=== PATIENT | male | born 1965 | race Caucasian/White ===

== ENCOUNTER 2016-07-13 08:46 | Emergency (ER) | payer BC, OTHER ==
--- NOTE | 2016-07-13 09:09 | EDM.PDOC ---
ED HPI GENERAL MEDICAL PROBLEM - General Chief Complaint: Cardiovascular Problem Stated Complaint: CHEST PAIN Time Seen by Provider: 07/13/16 08:50 Source of Information: Reports: Patient, EMS, EMS Notes Reviewed, Family History Limitations: Reports: No Limitations - History of Present Illness INITIAL COMMENTS - FREE TEXT/NARRATIVE: Dhruv comes in by EMS this am following an episode of midline lower retrosternal contant sharp chest pain with some epigastric features rated an 8/10. There was no radiation of pain, diaphoresis or jany SOB. There was no belching, heartburn , or gaseousness. EMS reported pain at 7/10, VSS, and transported uneventfully. Upon arrival to [facility] ED, pain was 2/10 without intervention, and currently painfree. He has a remote hx of Lalo fundoplication for GERD, and does take PPIs daily. Epigastric Pain Score (Numeric/FACES): 3 - Related Data Allergies Allergy/AdvReac Type Severity Reaction Status Date / Time No Known Allergies Allergy Verified 07/13/16 09:32 Home Meds: Home Meds Losartan [Cozaar] 100 mg PO DAILY 07/13/16 [History] Pantoprazole [ProTONIX] 40 mg PO DAILY 07/13/16 [History] amLODIPine [Norvasc] 10 mg PO DAILY 07/13/16 [History] Past Medical History Gastrointestinal History: Reports: GERD - Past Surgical History GI Surgical History: Reports: Lalo Fundoplication Social & Family History - Tobacco Use Smoking Status *Q: Never Smoker ED ROS GENERAL - Review of Systems Review Of Systems: See Below Constitutional: Reports: No Symptoms HEENT: Reports: No Symptoms Respiratory: Reports: No Symptoms Cardiovascular: Reports: Chest Pain Endocrine: Reports: No Symptoms GI/Abdominal: Reports: No Symptoms : Reports: No Symptoms Musculoskeletal: Reports: No Symptoms Skin: Reports: No Symptoms Neurological: Reports: No Symptoms Psychiatric: Reports: No Symptoms Hematologic/Lymphatic: Reports: No Symptoms Immunologic: Reports: No Symptoms ED EXAM, GENERAL - Physical Exam Exam: See Below Exam Limited By: No Limitations General Appearance: Alert, WD/WN, No Apparent Distress Eye Exam: Bilateral Eye: Normal Inspection, PERRL Ears: Normal External Exam Nose: Normal Inspection Throat/Mouth: Normal Inspection, Normal Oropharynx Head: Normocephalic Neck: Normal Inspection, Supple, Non-Tender, Full Range of Motion Respiratory/Chest: Lungs Clear, Normal Breath Sounds, Chest Non-Tender Cardiovascular: Normal Peripheral Pulses, Regular Rate, Rhythm, No Murmur GI/Abdominal: Normal Bowel Sounds, Soft, Non-Tender, No Organomegaly, No Distention, No Mass (Male) Exam: Normal Inspection Rectal (Males) Exam: Deferred Back Exam: Normal Inspection Extremities: Normal Inspection, Normal Range of Motion Neurological: Alert, Oriented, CN II-XII Intact, Normal Cognition, Normal Gait, No Motor/Sensory Deficits Psychiatric: Normal Affect, Normal Mood Skin Exam: Warm, Dry Lymphatic: No Adenopathy Course - Vital Signs Text/Narrative:: Damian remained asx at the [facility] ED, telemetry remained NSR, 12 lead ekg satisfactory, chest x ray satisfactory. Labs including CBC, Troponin I, and CMP were satisfactory. No meds were administered. Last Recorded V/S: Last Vital Signs Temp 36.6 C 07/13/16 09:00 Pulse 69 07/13/16 09:00 Resp 18 07/13/16 09:00 BP 158/84 H 07/13/16 09:00 Pulse Ox 93 L 07/13/16 09:00 - Orders/Labs/Meds Orders: Active Orders 24 hr Category Date Time Status EKG Documentation Completion [RC] ASDIRECTED Care 07/13/16 09:04 Active Chest 1V Frontal [CR] Stat Exams 07/13/16 09:03 Taken EKG 12 Lead [EK] Routine Ther 07/13/16 09:03 Ordered Labs: Laboratory Tests 07/13/16 07/13/16 07/13/16 Range/Units 09:10 09:10 09:10 WBC 6.3 (4.5-12.0) X10-3/uL RBC 5.32 (4.30-5.75) x10(6)uL Hgb 15.1 (11.5-15.5) g/dL Hct 43.4 (30.0-51.3) % MCV 81.6 (80-96) fL MCH 28.4 (27.7-33.6) pg MCHC 34.8 (32.2-35.4) g/dL RDW 12.0 (11.5-15.5) % Plt Count 217 (125-369) X10(3)uL MPV 7.4 (7.4-10.4) fL Neut % (Auto) 73.2 (46-82) % Lymph % (Auto) 21.1 (13-37) % [place] % (Auto) 5.2 (4-12) % Eos % (Auto) 0 L (1.0-5.0) % Baso % (Auto) 0 (0-2) % Neut # (Auto) 4.7 (1.6-8.3) # Lymph # (Auto) 1.3 (0.6-5.0) # [place] # (Auto) 0.3 (0.0-1.3) # Eos # (Auto) 0.0 (0.0-0.8) # Baso # (Auto) 0.0 (0.0-0.2) # Sodium 137 (135-145) mmol/L Potassium 4.2 (3.5-5.3) mmol/L Chloride 106 (100-110) mmol/L Carbon Dioxide 25 (23-29) mmol/L BUN 18 (5-20) mg/dL Creatinine 1.1 (0.6-1.3) mg/dL Est Cr Clr Drug Dosing 76.00 mL/min Estimated GFR (MDRD) > 60 (>60) BUN/Creatinine Ratio 16.4 (9-20) Glucose 118 H (80-116) mg/dL Calcium 9.1 (8.6-10.2) mg/dL Total Bilirubin 0.6 (0.1-1.3) mg/dL AST 17 (5-27) IU/L ALT 21 (14-26) IU/L Alkaline Phosphatase 48 L (56-112) IU/L Troponin I < 0.01 L (0.02-0.06) NG/ML Total Protein 7.6 (6.0-8.0) g/dL Albumin 4.2 (3.5-5.2) g/dL Globulin 3.4 g/dL Albumin/Globulin Ratio 1.2 Departure - Departure Time of Disposition: 10:15 Disposition: Home, Self-Care 01 Condition: good Clinical Impression: Atypical chest pain - Problem List & Annotations (1) Atypical chest pain SNOMED Code(s): 160995541 Code(s): R07.89 - OTHER CHEST PAIN Status: Acute Current Visit: Yes Annotation/Comment:: Atypical chest pain, possibly related to chronic GERD. He will continue maintenance meds, and may return to work without restrictions. - Problem List Review Problem List Initiated/Reviewed/Updated: Yes - My Orders Last 24 Hours: My Active Orders 07/13/16 09:03 Chest 1V Frontal [CR] Stat EKG 12 Lead [EK] Routine 07/13/16 09:04 EKG Documentation Completion [RC] ASDIRECTED - Assessment/Plan Last 24 Hours: My Active Orders 07/13/16 09:03 Chest 1V Frontal [CR] Stat EKG 12 Lead [EK] Routine 07/13/16 09:04 EKG Documentation Completion [RC] ASDIRECTED Plan: Follow up with PCP. No meds dispensed.
[2016-07-13] MEDS ORDERED: Alum Hydroxide/Mag Hydroxide 15 ML, Lidocaine 2% 15 ML PO ONE ×2 (10:22)
--- NOTE | 2016-07-13 10:31 | CR ---
INDICATION: Atypical chest pain. CHEST: An AP upright view of the chest was obtained 07/13/2016. No comparisons were available. There appears to be some minimal calcification in the area of the arch of the aorta, which is minimally tortuous. The heart is normal in size and shape. Overlying EKG leads are noted. An active infiltrate or effusion was not identified. Relatively poor inspiration is noted. IMPRESSION: 1. No acute process. 2. Suggestion of mild ASD aorta. MTDD
[2016-07-13] MEDS ORDERED: Nitroglycerin 0.4 MG Tab.SL SL ONE (10:44)
[2016-07-13] MEDS ORDERED: Acetaminophen/HYDROcodone 325-5 MG Tab PO ONE (11:06)
[2016-07-13 11:15] VITALS: BP 128/82
== END 2016-07-13 13:00 | disposition home or self-care (01) ==
LOC: FB.ED 08:46
DX: R07.89 Other chest pain (principal); K21.9 Gastro-esophageal reflux disease without esophagitis; Z79.899 Other long term (current) drug therapy
CPT/HCPCS: 36415; 71010; 80053; 84484; 85025; 93005; 99285; A9270

== ENCOUNTER 2017-06-25 07:14 | Day surgery (SDC) | payer BC ==
[2017-06-25] MEDS ORDERED: Lactated Ringers 1,000 ML IV SCH (07:30)
[2017-06-25] MEDS ORDERED: Sodium Chloride 0.9% 10 ML Syringe FLUSH PRN (07:30)
[2017-06-25] MEDS ORDERED: Lidocaine 2% 100 MG/5 ML Syringe IVPUSH ONE (10:00)
[2017-06-25] MEDS ORDERED: Propofol 200 MG/20 ML SDV IV ONE (10:00)
[2017-06-25] MEDS ORDERED: Midazolam 1 MG/ML 2 ML SDV IV ONE (10:00)
--- NOTE | 2017-06-25 10:25 | PCM.OPNOTE ---
- General Post-Op/Procedure Note Date of Surgery/Procedure: 06/25/17 Operative Procedure(s): egd with bx Findings: gastroduodenitis esophagitis breakdown of Lalo \ Pre Op Diagnosis: sx gerd hx of Lalo fundoplication Post-Op Diagnosis: gastroduodenitis. esophagitis. breakdown of Lalo \ Anesthesia Technique: MAC Primary Surgeon: Mynor Pickett Anesthesia Provider: Ary Oconnell Pathology: duodenum stomach distal esphagus Complications: None Condition: Good Free Text/Narrative:: see dictation #[id number]
[2017-06-25 11:16] VITALS: BP 116/85
--- NOTE | 2017-06-25 12:04 | OR ---
DATE OF OPERATION: 06/25/2017 SURGEON: Mynor Pickett MD PROCEDURES PERFORMED: Upper endoscopy with cold forceps biopsy. PREOPERATIVE DIAGNOSIS: Symptomatic gastroesophageal reflux disease, status post Lalo fundoplication. POSTOPERATIVE DIAGNOSES: Gastroduodenitis and esophagitis. INDICATIONS FOR PROCEDURE: This is a 52-year-old white male who, for the past year, has noted a return of his reflux symptoms. He had a Lalo fundoplication done about 15 years ago. He was offered and accepted EGD. DESCRIPTION OF PROCEDURE: After an excellent IV sedation was administered, the bite block was inserted. The flexible endoscope was passed without difficulty down the patient's esophagus and into the stomach. The stomach was insufflated. Scope was passed through the pylorus to the second portion of the duodenum and slowly withdrawn. The following findings were noted. Duodenum demonstrates some areas of inflammation. Biopsies of the mucosa were taken. Stomach, diffuse gastritis, biopsies were taken. On retroflexion of the scope, there was no evidence of fundoplication present. GE junction measured at 40 cm, and there was some mild erythema noted just proximal to this. Biopsies were taken of this area. The remainder of the esophageal exam was unremarkable. Stomach was deflated. Scope was removed. The patient tolerated the procedure well and was taken to the recovery room in a good condition. /[id number] DULCE/MIAN
== END 2017-06-25 11:15 | disposition home or self-care (01) ==
LOC: FB.SDS 07:14
PROVIDERS: ATTEND Surgery
DX: K21.9 Gastro-esophageal reflux disease without esophagitis (principal); K29.50 Unspecified chronic gastritis without bleeding; K29.80 Duodenitis without bleeding; K20.9 Esophagitis, unspecified; I10 Essential (primary) hypertension; Z98.890 Other specified postprocedural states
CPT/HCPCS: 88305; 88313; 88342; J2250; J2704; J7120

== ENCOUNTER 2018-11-22 09:37 | Emergency (ER) | payer BC ==
[2018-11-22] MEDS ORDERED: Sodium Chloride 0.9% 10 ML Syringe FLUSH PRN (10:17)
[2018-11-22] MEDS ORDERED: Sodium Chloride 0.9% 1,000 ML IV ONE (10:17)
[2018-11-22] MEDS ORDERED: Ketorolac 30 MG/ML SDV IVPUSH ONE (10:18)
--- NOTE | 2018-11-22 10:22 | EDM.PDOC ---
ED HPI GENERAL MEDICAL PROBLEM - General Chief Complaint: Abdominal Pain Stated Complaint: LOWER L SIDE PAIN Time Seen by Provider: 11/22/18 10:19 Source of Information: Reports: Patient History Limitations: Reports: No Limitations - History of Present Illness INITIAL COMMENTS - FREE TEXT/NARRATIVE: Presents with LLQ abdominal pain radiating to left lower back x 3 days. Not associated with N/V. Prior medical history includes kidney stones and inguinal hernia. Denies urinary complaints. Onset Date: 11/19/18 Duration: Day(s): (3) Location: Reports: Abdomen Quality: Reports: Dull Severity: Moderate Improves with: Reports: None Worsens with: Reports: None Associated Symptoms: Reports: No Other Symptoms left groin Pain Score (Numeric/FACES): 10 - Related Data Allergies Allergy/AdvReac Type Severity Reaction Status Date / Time No Known Allergies Allergy Verified 06/24/17 11:03 Home Meds: Home Meds Losartan [Cozaar] 100 mg PO DAILY 07/13/16 [History] Pantoprazole [ProTONIX] 40 mg PO DAILY 07/13/16 [History] amLODIPine [Norvasc] 10 mg PO DAILY 07/13/16 [History] Acetaminophen/HYDROcodone [Beaman 325-5 MG] 1 - 2 tab PO Q6H PRN #20 tab [Rx] Tamsulosin HCl [Flomax] 0.4 mg PO DAILY #15 cap.er.24h 11/22/18 [Rx] Past Medical History HEENT History: Reports: Impaired Vision Cardiovascular History: Reports: Hypertension Respiratory History: Reports: None Gastrointestinal History: Reports: GERD Genitourinary History: Reports: Renal Calculus, Other (See Below) Other Genitourinary History: HORSESHOE KIDNEY-RIGHT; HEMATURIA SLEDGER History: Reports: None Musculoskeletal History: Reports: None Neurological History: Reports: None Psychiatric History: Reports: None Endocrine/Metabolic History: Reports: None Hematologic History: Reports: None Immunologic History: Reports: None Oncologic (Cancer) History: Reports: None Dermatologic History: Reports: None - Infectious Disease History Infectious Disease History: Reports: Chicken Pox, Measles, Mumps - Past Surgical History Head Surgeries/Procedures: Reports: None HEENT Surgical History: Reports: Tonsillectomy GI Surgical History: Reports: Lalo Fundoplication Male Surgical History: Reports: Other (See Below) Social & Family History - Family History Family Medical History: Noncontributory - Tobacco Use Smoking Status *Q: Never Smoker - Caffeine Use Caffeine Use: Reports: Coffee, Soda, Tea ED ROS GENERAL - Review of Systems Review Of Systems: ROS reveals no pertinent complaints other than HPI. ED EXAM, GI/ABD - Physical Exam Exam: See Below Exam Limited By: No Limitations General Appearance: Alert, WD/WN, No Apparent Distress Ears: Normal External Exam Nose: Normal Inspection Throat/Mouth: Normal Voice, No Airway Compromise Head: Atraumatic, Normocephalic Neck: Normal Inspection Respiratory/Chest: No Respiratory Distress, Lungs Clear, Normal Breath Sounds Cardiovascular: Regular Rate, Rhythm, No Murmur GI/Abdominal Exam: Normal Bowel Sounds, Soft, No Mass, Tender (LLQ). No: Guarding, Rigid, Rebound (Male) Exam: No Hernia Back Exam: CVA Tenderness (L) Extremities: Normal Range of Motion Neurological: Alert, No Motor/Sensory Deficits Psychiatric: Normal Affect, Normal Mood Skin Exam: Warm, Dry, Intact Course - Vital Signs Last Recorded V/S: Last Vital Signs Temp 36.8 C 11/22/18 09:37 Pulse 83 11/22/18 09:37 Resp 18 11/22/18 09:37 BP 149/90 H 11/22/18 09:37 Pulse Ox 94 L 11/22/18 09:37 - Orders/Labs/Meds Orders: Active Orders 24 hr Category Date Time Status Abdomen Pelvis wo Cont [CT] Stat Exams 11/22/18 10:30 Taken Sodium Chloride 0.9% [Saline Flush] Med 11/22/18 10:17 Active 10 ml FLUSH ASDIRECTED PRN Saline Lock Insert [OM.PC] Routine Oth 11/22/18 10:17 Ordered Medication Orders Sodium Chloride (Saline Flush) 10 ml FLUSH ASDIRECTED PRN PRN Reason: Keep Vein Open Last Admin: 11/22/18 10:25 Dose: 10 ml Labs: Laboratory Tests 11/22/18 11/22/18 11/22/18 Range/Units 10:08 10:31 10:31 WBC 10.2 (4.5-12.0) X10-3/uL RBC 5.63 (4.30-5.75) x10(6)uL Hgb 16.0 (13.5-17.8) g/dL Hct 47.0 (30.0-51.3) % MCV 83.4 (80-96) fL MCH 28.5 (27.7-33.6) pg MCHC 34.1 (32.2-35.4) g/dL RDW 12.0 (11.5-15.5) % Plt Count 241 (125-369) X10(3)uL MPV 7.3 L (7.4-10.4) fL Neut % (Auto) 85.3 H (46-82) % Lymph % (Auto) 10.1 L (13-37) % [place] % (Auto) 4.3 (4-12) % Eos % (Auto) 0 L (1.0-5.0) % Baso % (Auto) 0 (0-2) % Neut # (Auto) 8.8 H (1.6-8.3) # Lymph # (Auto) 1.0 (0.6-5.0) # [place] # (Auto) 0.4 (0.0-1.3) # Eos # (Auto) 0.0 (0.0-0.8) # Baso # (Auto) 0.0 (0.0-0.2) # Sodium 142 (135-145) mmol/L Potassium 3.8 (3.5-5.3) mmol/L Chloride 106 (100-110) mmol/L Carbon Dioxide 25 (21-32) mmol/L BUN 14 (7-18) mg/dL Creatinine 1.3 (0.70-1.30) mg/dL Est Cr Clr Drug Dosing 62.85 mL/min Estimated GFR (MDRD) 58 L (>60) BUN/Creatinine Ratio 10.8 (9-20) Glucose 113 (80-116) mg/dL Calcium 9.5 (8.6-10.2) mg/dL Total Bilirubin 0.9 (0.1-1.3) mg/dL AST 18 (5-25) IU/L ALT 30 (12-36) U/L Alkaline Phosphatase 68 (56-112) IU/L Total Protein 7.9 (6.0-8.0) g/dL Albumin 3.9 (3.5-5.2) g/dL Globulin 4.0 g/dL Albumin/Globulin Ratio 1.0 Urine Color Yellow (YELLOW) Urine Appearance Slightly cloudy (CLEAR) Urine pH 7.0 H (5.0-6.5) Ur Specific [place] 1.015 (1.010-1.025) Urine Protein Negative (NEGATIVE) mg/dL Urine Glucose (UA) Normal (NORMAL) mg/dL Urine Ketones Negative (NEGATIVE) mg/dL Urine Occult Blood Large H (NEGATIVE) Urine Nitrite Negative (NEGATIVE) Urine Bilirubin Negative (NEGATIVE) Urine Urobilinogen Normal (NEGATIVE) mg/dL Ur Leukocyte Esterase Negative (NEGATIVE) Urine RBC 50-75 H (0-5) Urine WBC 0-5 (0-5) Ur Squamous Epith Cells Few H (NS,R,O) Urine Bacteria Few H (NS) Meds: Medications Generic Name Dose Route Start Last Admin Trade Name Freq PRN Reason Stop Dose Admin Sodium Chloride 10 ml 11/22/18 10:17 11/22/18 10:25 Saline Flush FLUSH 10 ml ASDIRECTED PRN Administration Keep Vein Open Discontinued Medications Generic Name Dose Route Start Last Admin Trade Name Freq PRN Reason Stop Dose Admin Sodium Chloride 1,000 mls @ 999 mls/hr 11/22/18 10:17 11/22/18 10:24 Normal Saline IV 11/22/18 11:17 999 mls/hr .BOLUS ONE Administration Ketorolac Tromethamine 30 mg 11/22/18 10:18 11/22/18 10:24 Toradol IVPUSH 11/22/18 10:19 30 mg ONETIME ONE Administration Tamsulosin HCl 0.4 mg 11/22/18 10:51 11/22/18 11:00 Flomax PO 11/22/18 10:52 0.4 mg ONETIME ONE Administration - Radiology Interpretation Free Text/Narrative:: 5mm distal left ureteral calculus with hydronephrosis, otherwise unremarkable per [place] [facility]. - Re-Assessments/Exams Free Text/Narrative Re-Assessment/Exam: 11/22/18 12:14 Pain resolved after Toradol 30 mg IV. Departure - Departure Time of Disposition: 12:15 Disposition: Home, Self-Care 01 Condition: Good Clinical Impression: Ureterolithiasis - Discharge Information *PRESCRIPTION DRUG MONITORING PROGRAM REVIEWED*: Yes *COPY OF PRESCRIPTION DRUG MONITORING REPORT IN PATIENT GLENN: No Prescriptions: Acetaminophen/HYDROcodone [Beaman 325-5 MG] 1 - 2 tab PO Q6H PRN #20 tab PRN Reason: Pain Tamsulosin HCl [Flomax] 0.4 mg PO DAILY #15 cap.er.24h Instructions: Kidney Stones, [id number] Referrals: Mello Mcmanus MD [Primary Care Provider] - Rolando Reddy MD [Ordering Only Provider] - 2 Days Forms: ED Department Discharge Additional Instructions: Fill prescriptions for Beaman and Flomax and take as directed. You may take OTC Ibuprofen in addition, but do not take Acetaminophen containing medications while taking Beaman. Drink plenty of fluids. Follow up with Urology in 2-3 days. Return to the ER if symptoms worsen. - My Orders Last 24 Hours: My Active Orders 11/22/18 10:17 Sodium Chloride 0.9% [Saline Flush] 10 ml FLUSH ASDIRECTED PRN Saline Lock Insert [OM.PC] Routine 11/22/18 10:30 Abdomen Pelvis wo Cont [CT] Stat - Assessment/Plan Last 24 Hours: My Active Orders 11/22/18 10:17 Sodium Chloride 0.9% [Saline Flush] 10 ml FLUSH ASDIRECTED PRN Saline Lock Insert [OM.PC] Routine 11/22/18 10:30 Abdomen Pelvis wo Cont [CT] Stat
[2018-11-22] MEDS ORDERED: Tamsulosin 0.4 MG Cap.ER PO ONE (10:51)
[2018-11-22 12:45] VITALS: BP 147/89; PULSE 97
== END 2018-11-22 12:38 | disposition home or self-care (01) ==
LOC: FB.ED 09:37
DX: N13.2 Hydronephrosis with renal and ureteral calculous obstruction (principal); I10 Essential (primary) hypertension; K21.9 Gastro-esophageal reflux disease without esophagitis; Z79.899 Other long term (current) drug therapy
CPT/HCPCS: 36415; 74176; 80053; 81001; 85025; 96361; 96374; 99284-25; A9270-GY; J1885; J7030